=== PATIENT | male | born 1980 | race Hispanic/Latino ===

== ENCOUNTER 2016-09-26 16:49 | Emergency (ER) | payer BC ==
[~2016-09-26] VITALS: Ht 177.8 cm; Wt 93.0 kg
[2016-09-26 19:40] LABS: HEMATOCRIT 47.9 % (38.0-50.0); MCHC 33.4 G/DL (30.0-36.0); MCV 86.9 FL (86-99); MEAN PLAT.VOLUME 12.3 uM^3 (9.0-12.4); NRBC (%) 0.2 /100 WBC (0-0); PLATELET COUNT 148 K/uL (156-360); RBC DIS.WIDTH-CV 12.2 % (11.8-14.6); RBC DIS.WIDTH-SD 39.2 % (39-53); RED BLOOD COUNT 5.51 M/uL (4.00-5.50); WHITE BLOOD COUNT 8.1 K/uL (4.1-10.2)
[2016-09-26 19:51] LABS: CHLORIDE 104 mEq/L (99-109); SODIUM 141 mEq/L (136-147)
[2016-09-26 19:53] LABS: GLUCOSE 95 mg/dL (70-99)
[2016-09-26 19:54] LABS: ANION GAP 12 MEQ/L (2-14)
[2016-09-26 19:55] LABS: TOTAL BILIRUBIN 0.6 mg/dL (0.0-1.0)
[2016-09-26 19:57] LABS: ALKALINE PHOSPHATASE 89 IU/L (3-129); GFR ESTIMATE (CALCULATED) > 59 mL/min/
[2016-09-26 19:58] LABS: UREA NITROGEN (BUN) 13 mg/dL (9-23)
[2016-09-26 20:29] LABS: C DIFF TOXIN ND (NEGATIVE)
[2016-09-26] MEDS ORDERED: FLAGYL250 MG PO ×2 (20:48→20:56)
[2016-09-26] MEDS ORDERED: BENTYL10 MG PO (20:48)
[2016-09-26] MEDS ORDERED: CIPRO500 MG PO ×2 (20:48→20:56)
[2016-09-26 21:23] VITALS: BP 148/81
== END 2016-09-26 21:24 | disposition home or self-care (01) ==
LOC: EME 16:49
PROVIDERS: Physician Assistant
DX: N64.4 Mastodynia (principal); R10.9 Unspecified abdominal pain
CPT/HCPCS: 80053; 85027; 87493; 87506; 99281; 99284

== ENCOUNTER 2017-05-24 16:33 | Emergency (ER) | payer BC ==
[~2017-05-24] VITALS: Ht 175.3 cm; Wt 86.5 kg
[~2017-05-24 16:33] MED LIST: BENTYL10 MG PO; CIPRO500 MG PO; FLAGYL250 MG PO
[2017-05-24 17:56] LABS: HEMATOCRIT 51.2 % (38.0-50.0); HEMOGLOBIN 17.5 G/DL (12.5-16.6); MCH 29.6 PG (29.0-34.0); MCHC 34.2 G/DL (30.0-36.0); MCV 86.6 FL (86-99); PLATELET COUNT 60 K/uL (156-360); RBC DIS.WIDTH-CV 12.2 % (11.8-14.6); RBC DIS.WIDTH-SD 38.9 % (39-53); RED BLOOD COUNT 5.91 M/uL (4.00-5.50); WHITE BLOOD COUNT 16.3 K/uL (4.1-10.2)
[2017-05-24 18:09] LABS: ALBUMIN 4.8 g/dL (3.2-4.8); CHLORIDE 101 mEq/L (99-109); POTASSIUM 3.9 mEq/L (3.7-5.4); SODIUM 135 mEq/L (136-147)
[2017-05-24 18:11] LABS: GLUCOSE 105 mg/dL (70-99)
[2017-05-24 18:12] LABS: TOTAL PROTEIN 8.1 g/dL (6.4-8.3)
[2017-05-24 18:13] LABS: TOTAL BILIRUBIN 0.9 mg/dL (0.0-1.0)
[2017-05-24 18:15] LABS: ALKALINE PHOSPHATASE 83 IU/L (3-129); CREATININE 1.1 mg/dL (0.6-1.3); GFR ESTIMATE (CALCULATED) > 59 mL/min/ (58.99-99999)
[2017-05-24 18:16] LABS: UREA NITROGEN (BUN) 15 mg/dL (9-23)
[2017-05-24 18:17] LABS: AST (GOT) 29 IU/L (2-34)
[2017-05-24 18:18] LABS: ALT (GPT) 56 IU/L (3-49)
[2017-05-24] MEDS ORDERED: ZOFRAN ODT4 MG PO (19:28)
[2017-05-24] MEDS ORDERED: FLOMAX0.4 MG PO (19:28)
[2017-05-24] MEDS ORDERED: PERCOCET 5/31 TABLET PO (19:28)
[2017-05-24 19:59] VITALS: BP 140/83
== END 2017-05-24 20:01 | disposition home or self-care (01) ==
LOC: EME 16:33
PROVIDERS: Nurse Practitioner Family
DX: N20.0 Calculus of kidney (principal); R31.9 Hematuria, unspecified; Z88.0 Allergy status to penicillin
CPT/HCPCS: 74176; 80053; 85027; 99281; 99284